=== PATIENT | female | born 1980 | race Caucasian/White ===

== ENCOUNTER 2021-06-12 11:13 | Day surgery (SDC) | payer BC, MEDICAID ==
[2021-06-06 16:00] LABS: BASOPHILS % (AUTO) 0.6 % (0-1); EOSINOPHILS # (AUTO) 0.1 X10'3 (0-0.9); EOSINOPHILS % (AUTO) 0.9 % (0-6); LYMPHOCYTES # (AUTO) 2.6 X10'3 (1.1-4.8); LYMPHOCYTES % (AUTO) 36.3 % (21-51); MEAN CORPUSCULAR HEMOGLOBIN 30.8 PG (27.0-31.0); MEAN CORPUSCULAR HGB CONC 34.5 g/dL (33.0-36.5); MEAN CORPUSCULAR VOLUME 89.4 FL (78-98); MEAN PLATELET VOLUME 7.7 FL (7.4-10.4); MONOCYTES # (AUTO) 0.7 X10'3 (0-0.9); MONOCYTES % (AUTO) 9.8 % (2-12); NEUTROPHILS # (AUTO) 3.7 X10'3 (1.8-7.7); NEUTROPHILS % (AUTO) 52.4 % (42-75); PRE OP HEMATOCRIT 44.3 % (35.0-45.0); PRE OP HEMOGLOBIN 15.3 g/dL (12.0-16.0); PRE OP PLATELET COUNT 254 X10'3 (140-440); RED BLOOD COUNT 4.96 X10'6 (4.20-5.60); RED CELL DISTRIBUTION WIDTH 14.3 % (11.5-14.5)
[2021-06-06 16:14] LABS: ALBUMIN 3.5 G/DL (3.4-5.0); ALKALINE PHOSPHATASE 50 IU/L (46-116); BLOOD UREA NITROGEN 9 MG/DL (7-18); BUN/CREATININE RATIO 15.8 (6.6-38.0); CALCIUM 8.1 MG/DL (8.5-10.1); CHLORIDE 106 MMOL/L (99-107); CREATININE 0.57 MG/DL (0.40-0.90); PRE OP ALT 45 U/L (30-65); PRE OP ANION GAP 10 (8-16); PRE OP AST 33 U/L (10-37); PRE OP BILIRUB, TOTAL 0.4 MG/DL (0.0-1.0); PRE OP GLUCOSE 76 MG/DL (70-104); PRE OP POTASSIUM 3.7 MMOL/L (3.4-5.1); PRE OP SODIUM 141 MMOL/L (135-145); TOTAL CARBON DIOXIDE 24.7 MMOL/L (24-32); eGFR > 90 ML/MIN
[2021-06-12] VITALS (9 sets, daily range): BP systolic 98–125; BP diastolic 53–83
[~2021-06-12] VITALS: Ht 165.1 cm; Wt 88.2 kg
[~2021-06-12 11:13] MED LIST: CHOL400T57 PO; MAGN400C PO; MULT-1085 PO; cefazolin/dext.iso 2gm/50ml 50 ML IV ONE; famotidine 20mg tablet PO ONE; ringers solution, lacted 1,000 ML IV SCH
[2021-06-12] MEDS ORDERED: INDOCYANINE GREEN 25 MG/10 ML VIAL IV ONE (11:36)
[2021-06-12] MEDS ORDERED: morphine 2 MG/ML inj. syringe IV PRN ×2 (12:30→13:15)
[2021-06-12] MEDS ORDERED: ketorolac trometh. 30mg/ml inj. IV ONE (12:30)
[2021-06-12] MEDS ORDERED: ondansetron/PF 4mg/2ml inj IV PRN ×2 (12:30→13:15)
[2021-06-12] MEDS ORDERED: meperidine/PF 25mg/ml syringe IV PRN ×3 (12:30)
[2021-06-12] MEDS ORDERED: proCHLORperazine 10 MG/2 ml inj IV PRN (12:30)
[2021-06-12] MEDS ORDERED: morphine 4 MG/ML inj SYRINge IV PRN ×2 (12:30→13:15)
[2021-06-12] MEDS ORDERED: labetalol 20mg/4ml (5mg/ml) syringe IV PRN ×2 (12:30→13:15)
[2021-06-12] MEDS ORDERED: hydrALAZINE 20mg/ml inj. IV PRN ×2 (12:30→13:15)
[2021-06-12] MEDS ORDERED: ringers solution, lacted 1,000 ML IV SCH ×2 (12:30→13:15)
[2021-06-12] MEDS ORDERED: acetaminophen 1,000mg/100ml IV 100 ML IV PRN (12:30)
[2021-06-12] MEDS ORDERED: BUPIVAcaine/PF 2.5 mg/ml (0.25%) 30ml vial ONE (12:44)
[2021-06-12] MEDS ORDERED: LIDOcaine 1% 30ml preserv. free vial ONE (12:44)
[2021-06-12] MEDS ORDERED: fentaNYL/PF 50MCG/1 ML 2ML syringe IV PRN ×2 (13:15)
[2021-06-12] MEDS ORDERED: midazolam 1 mg/ML 2ml injection ONE (13:41)
[2021-06-12] MEDS ORDERED: fentaNYL/PF 50MCG/1 ML 2ML syringe ONE (13:41)
[2021-06-12] MEDS ORDERED: neostigmine methylsulfate 1 MG/ML 10ml vial ONE (13:42)
[2021-06-12] MEDS ORDERED: glycopyrrolate 0.2mg/ml inj ONE (13:42)
[2021-06-12] MEDS ORDERED: propofol inj 20 ML IV ONE (13:42)
[2021-06-12] MEDS ORDERED: LIDOcaine 2% (20mg/ml) 5ml vial ONE (13:42)
[2021-06-12] MEDS ORDERED: ondansetron/PF 4mg/2ml inj ONE (13:42)
[2021-06-12] MEDS ORDERED: dexamethasone sod phosphate 4mg/ml inj. ONE (13:42)
[2021-06-12] MEDS ORDERED: metoprolol tartrate 1mg/ml inj IV ONE (13:56)
--- NOTE | 2021-06-12 14:46 | NUR ---
Received from OR via david, accompanied by Anesthesiologist DR. BAKER and report given by Anesthesiolgist AND OR NURSE. PT ARRIVED DROWSY ON 10 L OF 02 VIA MASK. 18G IV TO RIGHT HAND. 4 BANDAID SITES ON ABD C/D/I. VSS. Addendum: 06/12/21 at 1457 by Yessi Viera RN Amended: Links added.
[2021-06-12] MEDS ORDERED: HYDROcodone/acetaminophen 5mg/325mg tablet PO PRN (15:00)
--- NOTE | 2021-06-12 16:06 | NUR ---
ALL DISCHARGE CRITERIA HAS BEEN MET. VSS, PAIN AT A TOLERABLE LEVEL, ABLE TO SAFELY AMBULATE AND TRANSFER SELF. IV TAKEN OUT WITHOUT ANY COMPLICATIONS. BANDAIDS C/D/I. ALL DISCHARGE INSTRUCTIONS COVERED WITH PATIENT AND ALL QUESTIONS ANSWERED. PATIENT TAKEN OUT VIA WHEELCHAIR TO PERSONAL VEHICLE WHERE FAMILY/FRIEND DROVE PATIENT HOME. Addendum: 06/12/21 at 1620 by Yessi Viera RN Amended: Links added.
== END 2021-06-12 16:06 | disposition home or self-care (01) ==
LOC: PAS 11:13
PROVIDERS: ATTEND Surgery
DX: K80.10 Calculus of gallbladder with chronic cholecystitis without obstruction (principal); I47.1 Supraventricular tachycardia; E66.9 Obesity, unspecified; Z68.29 Body mass index [BMI] 29.0-29.9, adult; Z88.1 Allergy status to other antibiotic agents; Z88.5 Allergy status to narcotic agent; Z88.8 Allergy status to other drugs, medicaments and biological substances; Z72.89 Other problems related to lifestyle; Z98.818 Other dental procedure status; Z98.890 Other specified postprocedural states; Z79.899 Other long term (current) drug therapy; Z20.822 Contact with and (suspected) exposure to COVID-19; Z82.3 Family history of stroke; Z83.3 Family history of diabetes mellitus; Z82.49 Family history of ischemic heart disease and other diseases of the circulatory system; Z80.42 Family history of malignant neoplasm of prostate
CPT/HCPCS: 36415; 47563; 80053; 82948; 85025; J1100; J2001; J2250; J2405; J2704; J2710; J3010; J3490; U0003; U0005; Z7512; A4215; A4618; A7000; J7120